=== PATIENT | female | born 1990 | race Two or more races ===

== ENCOUNTER 2025-06-26 12:32 | Observation (INO) | payer MEDICAID ==
[2025-06-26] MEDS ORDERED: PREN-96 PO (13:27)
--- NOTE | 2025-06-26 15:22 | DVHDS2 ---
Physician Discharge Progress N Final Diagnosis: IUP 25 wk, dizziness, dehydration Operations or Procedures: Operations or Procedures NST PO hydration Symptoms resolved Vitals and blood sugar WNL Condition on Discharge: Stable Disposition: Home Discharge Instructions: Diet: Regular Activity: No Restrictions, As Tolerated Follow Up/Referral: as scheduled. Medications: NA Follow Up Care: Discharge Statement: "Patient was advised to return to the ER or call 911 if any headaches, dizziness, shortness of breath, chest pain, abdominal pain, bleeding, fevers, or worsening of medical condition. Patient was counseled about treatment plan, medications, possible side effects, patientverbalized understanding. All questions were answered to the best of my ability. This discharge took greater then 30 minutes in planning, reviewing documentation, counseling the patient, and discussing with other team members." Visit Coding OBGYN Date of Service: Jun 26, 2025 Billing Provider: JACQUE SMITH DO ADVERTISING TRAFFIC MANAGER Common Visit Codes: 62051-VDU/OBS SAME DATE (HIGH) ADVERTISING TRAFFIC MANAGER Procedure Codes: 24228-74- NON-STRESS TEST JACQUE SMITH DO Jun 26, 2025 15:22
== END 2025-06-26 13:56 | disposition home or self-care (01) ==
LOC: LDRP 12:32
PROVIDERS: ADMIT Obstetrics & Gynecology; ATTEND Obstetrics & Gynecology
DX: O99.282 Endocrine, nutritional and metabolic diseases complicating pregnancy, second trimester (principal); E86.0 Dehydration; O26.892 Other specified pregnancy related conditions, second trimester; R42 Dizziness and giddiness; Z3A.25 25 weeks gestation of pregnancy
CPT/HCPCS: 81002; 82948; 82962; 94760; A4649; G0378